=== PATIENT | male | born 1935 | race Caucasian/White ===

== ENCOUNTER 2021-10-22 10:25 | Emergency (ER) | payer MEDICARE ==
[~2021-10-22] VITALS: Ht 182 cm; Wt 73.0 kg
[2021-10-22] MEDS ORDERED: ACETAMINOPHEN 500 MG TAB (TYLENOL) PO ONE (10:45)
--- NOTE | 2021-10-22 10:49 | ED Lower Extremity ---
General Chief Complaint: Lower Extremity Stated Complaint: R 2ND TOE BLACK Source: patient Exam Limitations: no limitations History of Present Illness Date Seen by Provider: Oct 22, 2021 Time Seen by Provider: 10:40 Initial Comments Pt presented to the emergency room with a chief complaint of "right 2nd toe black." Pt was alert and oriented on arrival. Pt was accompanied by a health care provider from [place] and she stated that the patient is legally blind. Pt has wounds on both his 2nd toes, but the right 2nd toe is black. PT is ESRD on Hemodialysis. Location Injury Occurred: 2nd right toe Onset: other Severity: moderate Pain/Injury Location: right 2nd toe Method of Injury: other (ulcer/ skin rubbing against the shoe) Modifying Factors: Worse With Movement Associated Symptoms: Pain Allergies and Home Medications Allergies Coded Allergies: clonazepam (Verified Allergy, Unknown, 10/22/21) clopidogrel (Verified Allergy, Unknown, 10/22/21) heparin (Verified Allergy, Unknown, 10/22/21) Patient Home Medication List Home Medication List Reviewed: Yes Review of Systems Constitutional: No chills, No fever EENTM: see HPI, no symptoms reported Respiratory: no symptoms reported, see HPI Cardiovascular: no symptoms reported, see HPI Gastrointestinal: no symptoms reported Genitourinary: no symptoms reported, see HPI Musculoskeletal: see HPI; No muscle twitching; other (right second toe pain) Skin: change in color, other (ulcer, necrosis) Psychiatric/Neurological: No Symptoms Reported, See HPI Physical Exam Vital Signs Vital Signs - First Documented 10/22/21 10:30 Temp 36.1 Pulse 67 Resp 18 B/P (MAP) 132/71 (91) Pulse Ox 100 Capillary Refill : Height, Weight, BMI Height: '" Weight: lbs. oz. kg; BMI Method: General Appearance: WD/WN, no apparent distress; No mild distress, No moderate distress, No severe distress Neck: non-tender, full range of motion Cardiovascular: normal peripheral pulses, regular rate, rhythm, no gallop, no murmur Respiratory: lungs clear, normal breath sounds, no respiratory distress Gastrointestinal: normal bowel sounds, non tender Back: normal inspection, no CVA tenderness Hips: bilateral hip normal inspection, bilateral hip normal range of motion Legs: bilateral leg normal range of motion, bilateral leg no evidence of injury Knees: bilateral knee normal range of motion, bilateral knee no evidence of injury Ankles: bilateral ankle normal inspection, bilateral ankle normal range of motion Feet: right foot pain, right foot other (dry and wet necrosis of 2nd right toe. There is a small 4 mm circular eschar over the dorsal aspect of the great toe at the IP joint. There is no other erythema of the great toe. The erythema of the second toe does not extend proximal to the MTP joint.) Neurologic/Tendon: normal sensation, responds to pain Neurologic/Psychiatric: alert, oriented x 3 Skin: normal color, warm/dry; No cyanosis; other (necrosis) Lymphatic: no adenopathy Progress/Results/Core Measures Results/Orders Lab Results Laboratory Tests Test 10/22/21 10:50 Range/Units White Blood Count 7.3 4.3-11.0 10^3/uL Red Blood Count 3.92 L 4.30-5.52 10^6/uL Hemoglobin 13.1 L 13.3-17.7 g/dL Hematocrit 41 40-54 % Mean Corpuscular Volume 105 H 80-99 fL Mean Corpuscular Hemoglobin 33 25-34 pg Mean Corpuscular Hemoglobin Concent 32 32-36 g/dL Red Cell Distribution Width 12.9 10.0-14.5 % Platelet Count 348 130-400 10^3/uL Mean Platelet Volume 9.4 9.0-12.2 fL Immature Granulocyte % (Auto) 0 % Neutrophils (%) (Auto) 71 42-75 % Lymphocytes (%) (Auto) 17 12-44 % Monocytes (%) (Auto) 11 0-12 % Eosinophils (%) (Auto) 0 0-10 % Basophils (%) (Auto) 1 0-10 % Neutrophils # (Auto) 5.2 1.8-7.8 10^3/uL Lymphocytes # (Auto) 1.2 1.0-4.0 10^3/uL Monocytes # (Auto) 0.8 0.0-1.0 10^3/uL Eosinophils # (Auto) 0.0 0.0-0.3 10^3/uL Basophils # (Auto) 0.0 0.0-0.1 10^3/uL Immature Granulocyte # (Auto) 0.0 0.0-0.1 10^3/uL Neutrophils % (Manual) 69 % Lymphocytes % (Manual) 19 % Monocytes % (Manual) 7 % Eosinophils % (Manual) 1 % Basophils % (Manual) 0 % Band Neutrophils 4 % Macrocytosis SLIGHT Elliptocytes SLIGHT Erythrocyte Sedimentation Rate 57 H 0-30 MM/HR Prothrombin Time 13.1 12.2-14.7 SEC INR Comment 1.0 0.8-1.4 Sodium Level 142 135-145 MMOL/L Potassium Level 3.7 3.6-5.0 MMOL/L Chloride Level 99 98-107 MMOL/L Carbon Dioxide Level 25 21-32 MMOL/L Anion Gap 18 H 5-14 MMOL/L Blood Urea Nitrogen 30 H 7-18 MG/DL Creatinine 4.82 H 0.60-1.30 MG/DL Estimat Glomerular Filtration Rate 11 BUN/Creatinine Ratio 6 Glucose Level 85 70-105 MG/DL Calcium Level 9.8 8.5-10.1 MG/DL Corrected Calcium 10.2 H 8.5-10.1 MG/DL Total Bilirubin 0.2 0.1-1.0 MG/DL Aspartate Amino Transf (AST/SGOT) 34 5-34 U/L Alanine Aminotransferase (ALT/SGPT) 16 0-55 U/L Alkaline Phosphatase 144 H 40-136 U/L Total Protein 7.0 6.4-8.2 GM/DL Albumin 3.5 3.2-4.5 GM/DL My Orders Orders - ESTUARDO LESTER [employer] Cbc And Manual Diff (10/22/21 10:39) Comprehensive Metabolic Panel (10/22/21 10:39) Foot, Right, 3 View (10/22/21 10:39) Protime With Inr (10/22/21 10:39) Erythrocyte Sedimentation Rate (10/22/21 10:43) Ed Iv/Invasive Line Start (10/22/21 10:43) Acetaminophen Tablet (Tylenol Tablet) (10/22/21 10:45) Vital Signs/I&O 10/22/21 10:30 Temp 36.1 Pulse 67 Resp 18 B/P (MAP) 132/71 (91) Pulse Ox 100 Departure Communication (Admissions) Family Conversation [id number] discussed with Dr. Greene and he will see in the clinic and tentatively plan for amputation of toe later this week. We will do a dose of Rocephin here and a prescription for Augmentin. I called Dr. Greene's office, he will see the patient today at 3 PM patient should arrive at 2:30 PM. NAME: [facility] REC#: [id number] PT STATUS: REG ER : 1935 PHYSICIAN: ESTUARDO LESTRE APRN ADMIT DATE: 10/22/21/ER Draft Date of Exam:10/22/21 FOOT, RIGHT, 3 VIEW INDICATION: Ulcer of the second toe. COMPARISON: None. FINDINGS: Three radiographic views of the right foot were obtained. Patient is status post previous ORIF of the distal tibia and fibula. No unexpected radiopaque foreign bodies are seen. There is generalized diminished bone mineral density suggestive of underlying osteopenia. There is focal cortical irregularity of the [id number] fifth metatarsal. Appearance is suggestive of old partially healed fracture. No definite osteolytic process is seen. Please note, second toe is suboptimally evaluated due to hammertoe deformity and superimposition of the osseous structures on the frontal and oblique views. Joint spaces are maintained. IMPRESSION: 1. Suboptimal evaluation of the second toe. Osteomyelitis cannot be excluded. Correlation with MRI is recommended. If MRI is contraindicated, triple-phase bone scan could be performed. 2. Probable old partially healed fracture of the fifth metatarsal. 3. Diminished bone mineral density suspicious for osteopenia/osteoporosis. Correlation with DEXA scan is advised. Dictated on workstation # [id number] Dict: 10/22/21 1110 Trans: 10/22/21 1118 [id number] Interpreted by: ENID SCHROEDER MD Electronically signed by: Impression Primary Impression: Necrotic toes Disposition: 01 HOME, SELF-CARE Condition: Stable Departure-Patient Inst. Decision time for Depature: 11:46 Referrals: NGUYEN GREENE DAVID F MD (PCP/Family) Primary Care Physician Patient Instructions: Gangrene Add. Discharge Instructions: 1. Antibiotic as directed. See Dr. Greene today at 3 PM but you should arrive at 2:30 PM. All discharge instructions reviewed with patient and/or family. Voiced understanding. Scripts Amoxicillin/Potassium Clav (Augmentin 500-125 Tablet) 500 Mg-125 Mg Tablet 1 EACH PO DAILY, #7 TAB Prov: ESTUARDO LESTER APRN 10/22/21 ESTUARDO LESTER APRN Oct 22, 2021 10:49
[2021-10-22 11:01] LABS: BASOPHILS % (AUTO) 1 % (0-10); EOSINOPHILS % (AUTO) 0 % (0-10); HEMATOCRIT 41 % (40-54); HEMOGLOBIN 13.1 g/dL (13.3-17.7); LYMPHOCYTES # (AUTO) 1.2 10^3/uL (1.0-4.0); LYMPHOCYTES % (AUTO) 17 % (12-44); MEAN CORPUSCULAR HEMOGLOBIN 33 pg (25-34); MEAN CORPUSCULAR HGB CONC 32 g/dL (32-36); MEAN CORPUSCULAR VOLUME 105 fL (80-99); MEAN PLATELET VOLUME 9.4 fL (9.0-12.2); MONOCYTES # (AUTO) 0.8 10^3/uL (0.0-1.0); MONOCYTES % (AUTO) 11 % (0-12); NEUTROPHILS # (AUTO) 5.2 10^3/uL (1.8-7.8); NEUTROPHILS % (AUTO) 71 % (42-75); PLATELET COUNT 348 10^3/uL (130-400); WHITE BLOOD COUNT 7.3 10^3/uL (4.3-11.0)
[2021-10-22 11:12] LABS: ALBUMIN 3.5 GM/DL (3.2-4.5)
[2021-10-22 11:13] LABS: POTASSIUM 3.7 MMOL/L (3.6-5.0)
[2021-10-22 11:14] LABS: CALCIUM 9.8 MG/DL (8.5-10.1); PROTHROMBIN TIME PATIENT 13.1 SEC (12.2-14.7)
[2021-10-22 11:17] LABS: BILIRUBIN,TOTAL 0.2 MG/DL (0.1-1.0)
--- NOTE | 2021-10-22 11:18 | Diagnostic Imaging Report ---
INDICATION: Ulcer of the second toe. COMPARISON: None. FINDINGS: Three radiographic views of the right foot were obtained. Patient is status post previous ORIF of the distal tibia and fibula. No unexpected radiopaque foreign bodies are seen. There is generalized diminished bone mineral density suggestive of underlying osteopenia. There is focal cortical irregularity of the [id number] fifth metatarsal. Appearance is suggestive of old partially healed fracture. No definite osteolytic process is seen. Please note, second toe is suboptimally evaluated due to hammertoe deformity and superimposition of the osseous structures on the frontal and oblique views. Joint spaces are maintained. IMPRESSION: 1. Suboptimal evaluation of the second toe. Osteomyelitis cannot be excluded. Correlation with MRI is recommended. If MRI is contraindicated, triple-phase bone scan could be performed. 2. Probable old partially healed fracture of the fifth metatarsal. 3. Diminished bone mineral density suspicious for osteopenia/osteoporosis. Correlation with DEXA scan is advised. Dictated by: Dictated on workstation # [id number]
[2021-10-22 11:19] LABS: CREATININE SERUM 4.82 MG/DL (0.60-1.30)
[2021-10-22 11:30] LABS: ERYTHROCYTE SEDIMENTATION RATE 57 MM/HR (0-30)
[2021-10-22 11:37] LABS: BAND NEUTROPHILS 4 %; BASOPHILS % (MANUAL) 0 %; ELLIPT/OVALOCYTES SLIGHT; EOSINOPHILS % (MANUAL) 1 %; LYMPHOCYTES % (MANUAL) 19 %; MONOCYTES % (MANUAL) 7 %; NEUTROPHILS % (MANUAL) 69 %
[2021-10-22] MEDS ORDERED: AMOX-355 PO (11:47)
[2021-10-22 12:00] VITALS: BP 125/68
[2021-10-22] MEDS ORDERED: cefTRIAXone 1 GM PRE-MIX 50 ML IV ONE (12:30)
== END 2021-10-22 12:00 | disposition home or self-care (01) ==
LOC: ER 10:30
DX: M87.077 Idiopathic aseptic necrosis of right toe(s) (principal); N18.6 End stage renal disease
CPT/HCPCS: 36415; 73630; 80053; 85007; 85027; 85610; 85652

== ENCOUNTER 2021-10-24 05:30 | Outpatient (CLI) | payer MEDICARE ==
[~2021-10-24] VITALS: Ht 182.9 cm; Wt 72.7 kg
[~2021-10-24 05:30] MED LIST: AMOX-355 PO
[2021-10-24] MEDS ORDERED: APIX2.5T PO (14:52)
[2021-10-24] MEDS ORDERED: ATOR40TA PO (15:08)
[2021-10-24] MEDS ORDERED: LEG CRAMPS TAB (15:08)
[2021-10-24] MEDS ORDERED: CALC667C10 PO (15:08)
[2021-10-24] MEDS ORDERED: HYDR-3820 PO (15:08)
[2021-10-24] MEDS ORDERED: NITR0.4T39 SL (15:08)
[2021-10-24] MEDS ORDERED: ACET-168 PO (15:08)
[2021-10-24] MEDS ORDERED: VITA1CAP16 PO (15:08)
[2021-10-24] MEDS ORDERED: MIDO5TAB3 PO (15:08)
[2021-10-24] MEDS ORDERED: FINA5TAB6 PO (15:08)
[2021-10-24] MEDS ORDERED: GABA-486 PO (15:08)
[2021-10-24] MEDS ORDERED: PANT40SU PO (15:08)
[2021-10-24] MEDS ORDERED: LEVO25TA2 PO (15:08)
[2021-10-24] MEDS ORDERED: MAGN400T7 PO (15:08)
[2021-10-24] MEDS ORDERED: CARB100T48 PO (15:08)
[2021-10-24] MEDS ORDERED: LINA145C PO (15:08)
[2021-10-24] MEDS ORDERED: ONDA4TAB11 PO (15:08)
[2021-10-24] MEDS ORDERED: DIPH25TA31 PO ×2 (15:08)
[2021-10-24] MEDS ORDERED: CAMPHOR-MENTHOL TOP (15:08)
[2021-10-24] MEDS ORDERED: ROPI0.5T4 PO (15:08)
[2021-10-24] MEDS ORDERED: CALC-870 PO (15:08)
== END 2021-10-24 15:09 | disposition home or self-care (01) ==
LOC: PREOP 05:30
PROVIDERS: ATTEND Surgery
DX: Z01.818 Encounter for other preprocedural examination (principal)

== ENCOUNTER 2021-10-30 16:02 | Emergency (ER) | payer MEDICARE ==
[~2021-10-30] VITALS: Ht 182.8 cm; Wt 74.8 kg
[2021-10-30 16:02] VITALS: BP 93/78
[~2021-10-30 16:02] MED LIST changes: +ACET-168 PO; +APIX2.5T PO; +ATOR40TA PO; +CALC-870 PO; +CALC667C10 PO; +CAMPHOR-MENTHOL TOP; +CARB100T48 PO; +DIPH25TA31 PO; +FINA5TAB6 PO; +GABA-486 PO; +HYDR-3820 PO; +LEG CRAMPS TAB; +LEVO25TA2 PO; +LINA145C PO; +MAGN400T7 PO; +MIDO5TAB3 PO; +NITR0.4T39 SL; +ONDA4TAB11 PO; +PANT40SU PO; +ROPI0.5T4 PO; +VITA1CAP16 PO
[2021-10-30] MEDS ORDERED: NS IV 500 ML 500 ML IV ONE (16:15)
--- NOTE | 2021-10-30 16:41 | Diagnostic Imaging Report ---
INDICATION: Sepsis. COMPARISON: No priors. FINDINGS: No focal consolidation, effusion, pneumothorax, or failure pattern. A left-sided vascular stent is partially visualized. No free air beneath the diaphragms. IMPRESSION: No acute appearing abnormality. Dictated by: Dictated on workstation # [id number]
--- NOTE | 2021-10-30 16:47 | Diagnostic Imaging Report ---
INDICATION: Sepsis. COMPARISON: Comparison is limited to three-view radiograph of the right foot dated 10/22/2021. FINDINGS: RIGHT FOOT: Two-view right foot performed. The toes are held in flexion limiting their evaluation. No appreciable soft tissue gas or pathological radiopaque foreign body. There is bony demineralization with the most pronounced juxta-articular distribution. No appreciable osseous destruction. No acute fracture. There are substantial atherosclerotic vascular calcifications and postsurgical changes to the medial and lateral malleoli, chronic. When correlated with previous exam, no appreciable change has occurred. LEFT FOOT: Similar pattern of bony demineralization and atherosclerotic vascular calcifications with toes held in flexion is found on the left. No gas or suspicious opaque foreign body. No fracture deformity or osseous destruction. 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 No acute bony destructive process found, but the toes being held in flexion does limit their radiographic visualization. No suspicious foreign body or soft tissue gas is identified. Dictated by: Dictated on workstation # [id number]
--- NOTE | 2021-10-30 18:28 | ED General ---
General Chief Complaint: Altered Mental Status Stated Complaint: CONFUSION Nursing Triage Note: PT BROUGHT IN BY [facility] FROM [facility] [place] FOR INCREASING CONFUSION. Source of Information: Patient, EMS, Family, Longterm Records Exam Limitations: Other History of Present Illness Date Seen by Provider: Oct 30, 2021 Time Seen by Provider: 16:05 Initial Comments This 86-year-old gentleman is brought to the emergency room via EMS from [facility] with complaints of altered mental status. Reportedly he has experienced increased confusion over the past 2 weeks. He has history of rather severe dementia according to his daughter and has had fairly rapid progression of disease in recent years. Lenora is agitated and resisting care. He makes requests such as "just let me ." He is a poor historian due to his dementia. He appears to have rather significant vascular disease with cool extremities and no presenting venous access. He does have a dialysis fistula in the left arm. He receives dialysis Thursday, Thursday, and Thursday. He is afebrile. He has atrial fibrillation with RVR on the monitor. He currently has gangrenous toes on both feet and is scheduled for amputation tomorrow with Dr. Vazquez. EMS reported he did not take all of his medications today. Allergies and Home Medications Allergies Coded Allergies: clonazepam (Verified Allergy, Unknown, 10/22/21) clopidogrel (Verified Allergy, Unknown, 10/22/21) heparin (Verified Allergy, Unknown, 10/22/21) Uncoded Allergies: CHLORINE (Allergy, Unknown, 10/24/21) Patient Home Medication List Home Medication List Reviewed: Yes Acetaminophen (Acetaminophen Extra Strength) 500 Mg Tablet, 500 MG PO Q8H PRN for PRN, (Reported) Entered as Reported by: NILS MONTE on 10/24/21 1508 Amoxicillin/Potassium Clav (Augmentin 500-125 Tablet) 500 Mg-125 Mg Tablet, 1 EACH PO DAILY Prescribed by: ESTUARDO LESTER on 10/22/21 1147 Apixaban (Eliquis) 2.5 Mg Tablet, 2.5 MG PO BID, (Reported) Entered as Reported by: NILS MONTE on 10/24/21 1452 Atorvastatin Calcium (Lipitor) 40 Mg Tablet, 40 MG PO HS, (Reported) Entered as Reported by: NILS MONTE on 10/24/21 1508 Calcium Acetate (Calcium Acetate) 667 Mg Capsule, 667 MG PO TID, (Reported) Entered as Reported by: NILS MONTE on 10/24/21 1508 Calcium Carbonate (Tums X-Str) 300 Mg Calcium (750 Mg) Tab.chew, 300 MG PO UD, (Reported) Entered as Reported by: NILS MONTE on 10/24/21 1508 Carbamazepine (Carbamazepine ER) 100 Mg Tab.er.12h, 300 MG PO BID, (Reported) Entered as Reported by: NILS MONTE on 10/24/21 1508 Diphenhydramine HCl (Diphenhydramine HCl) 25 Mg Tablet, 25 MG PO Q6H PRN, (Reported) Entered as Reported by: NILS MONTE on 10/24/21 1508 Diphenhydramine HCl (Diphenhydramine HCl) 25 Mg Tablet, 50 MG PO Q MWF FOR DIALYSIS, (Reported) Entered as Reported by: NILS MONTE on 10/24/21 1508 Finasteride (Finasteride) 5 Mg Tablet, 5 MG PO DAILY, (Reported) Entered as Reported by: NILS MONTE on 10/24/21 1508 Gabapentin (Gabapentin) 100 Mg Capsule, 100 MG PO TID, (Reported) Entered as Reported by: NILS MONTE on 10/24/21 1508 Hydrocodone/Acetaminophen (Hydrocodone-Acetamin 10-325 mg) 10 Mg-325 Mg Tablet, 1 EACH PO Q6H PRN for PRN, (Reported) Entered as Reported by: NILS MONTE on 10/24/21 1508 Levothyroxine Sodium (Synthroid) 25 Mcg Tablet, 25 MCG PO DAILY, (Reported) Entered as Reported by: NILS MONTE on 10/24/21 1508 Linaclotide (Linzess) 145 Mcg Capsule, 145 MCG PO DAILY, (Reported) Entered as Reported by: NILS MONTE on 10/24/21 1508 Magnesium Oxide (Magnesium Oxide) 400 Mg Tablet, 400 MG PO DAILY, (Reported) Entered as Reported by: NILS MONTE on 10/24/21 1508 Midodrine HCl (Midodrine HCl) 5 Mg Tablet, 5 MG PO TID, (Reported) Entered as Reported by: NILS MONTE on 10/24/21 1508 Nitroglycerin (Nitroglycerin) 0.4 Mg Tab.subl, 0.4 MG SL UD PRN for CHEST PAIN, (Reported) Entered as Reported by: NILS MONTE on 10/24/211507 Ondansetron (Ondansetron Odt) 4 Mg Tab.rapdis, 4 MG PO PRN, (Reported) Entered as Reported by: NILS MONTE on 10/24/211507 Pantoprazole Sodium (Protonix) 40 Mg Granpkt.dr, 40 MG PO DAILY, (Reported) Entered as Reported by: NILS MONTE on 10/24/211507 Ropinirole HCl (Ropinirole HCl) 0.5 Mg Tablet, 0.5 MG PO UD, (Reported) Entered as Reported by: NILS MONTE on 10/24/211507 Vitamin B Complex & Vit C No.3 (B Complex with Vitamin C) 15-10-300 Capsule, 1 EACH PO HS, (Reported) Entered as Reported by: NILS MONTE on 10/24/21 150 [Camphor-Menthol ] Unknown Strength , Unknown Dose TOP Q6H PRN, (Reported) Entered as Reported by: NILS MONTE on 10/24/21 150 [Leg Cramps Tab ] Unknown Strength , Unknown Dose UD, (Reported) Entered as Reported by: NILS MONTE on 10/24/211507 Review of Systems Review of Systems Constitutional: no symptoms reported, other EENTM: no symptoms reported Respiratory: no symptoms reported Cardiovascular: see HPI Gastrointestinal: no symptoms reported Genitourinary: no symptoms reported Musculoskeletal: see HPI Skin: see HPI Psychiatric/Neurological: See HPI Hematologic/Lymphatic: No Symptoms Reported Immunological/Allergic: no symptoms reported Past Rcaxums-Npyuph-Lmyvjw Hx Patient Social History Tobacco Use?: No Smoking Status: Former Smoker Use of E-Cig and/or Vaping dev: No Substance use?: No Alcohol Use?: No Immunizations Up To Date First/Initial COVID19 Vaccinat: 2020 Second COVID19 Vaccination Andrew: 2020 Third COVID19 Vaccination Date: 2020 Seasonal Allergies Seasonal Allergies: No Past Medical History Surgeries: Yes (SEE COMMENT SECTION) Respiratory: No Cardiac: Yes Atrial Fibrillation, Coronary Artery Disease, High Cholesterol, Hypertension Neurological: Yes (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, 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) Genitourinary: Yes (HEMO DIALYSIS 3X WEEK MO-THU-THU) Benign Prostatic Hyperpl, Renal Failure, Dialysis Gastrointestinal: Yes (MALIGNANT TUMOR OF COLON) Musculoskeletal: Yes Arthritis, Fractures Endocrine: No HEENT: Yes (BLIND IN RT EYE, PARTIAL BLINDNESS LT EYE) Cataract, Eye Injury Loss of Vision: Bilateral Hearing Impairment: Hard of Hearing Cancer: Yes Colon Did You Recieve Any Treatments: Yes What Type of Treatment Did You: Surgical Intervention Psychosocial: Yes Anxiety Integumentary: No Blood Disorders: Yes (ANEMIA) Adverse Reaction/Blood Tranf: No Physical Exam Vital Signs Vital Signs - First Documented 10/30/21 16:02 Temp 36.1 Pulse 131 Resp 22 B/P (MAP) 93/78 (83) Capillary Refill : Greater Than 3 Seconds Height, Weight, BMI Height: '" Weight: lbs. oz. kg; 22.00 BMI Method: General Appearance: WD/WN, Cachetic, Moderate Distress (Agitated, pleads against interventions) HEENT: Normal ENT Inspection, Other (Blind) Neck: Normal Inspection Respiratory: Lungs Clear, Normal Breath Sounds, No Accessory Muscle Use Cardiovascular: No Edema, Irregularly Irregular, Tachycardia Gastrointestinal: Non Tender, Soft Extremity: No Pedal Edema, Other (Gangrenous toes bilaterally. Very poor perfusion with cool extremities. No palpable pedal pulses bilaterally.) Neurologic/Psychiatric: Alert, Motor Weakness (No obvious motor deficits. Moves all 4 extremities equally), Other (Poor historian. Oriented to person and place) Skin: Cool, Pallor Focused Exam Lactate Level 10/30/21 18:28: Lactic Acid Level 3.78*H Lactic Acid Level Laboratory Tests Test 10/30/21 18:28 Lactic Acid Level 3.78 MMOL/L (0.50-2.00) *H Progress/Results/Core Measures Suspected Sepsis SIRS Temperature: Pulse: 131 Respiratory Rate: 22 Laboratory Tests 10/30/21 18:22: White Blood Count 15.8H Blood Pressure 93 /78 Mean: 83 10/30/21 18:28: Lactic Acid Level 3.78*H Laboratory Tests 10/30/21 18:22: Creatinine 2.98H, INR Comment 1.0, Platelet Count 453H, Total Bilirubin 0.4 Results/Orders Lab Results Laboratory Tests Test 10/30/21 18:22 10/30/21 18:28 Range/Units White Blood Count 15.8 H 4.3-11.0 10^3/uL Red Blood Count 3.80 L 4.30-5.52 10^6/uL Hemoglobin 12.5 L 13.3-17.7 g/dL Hematocrit 38 L 40-54 % Mean Corpuscular Volume 101 H 80-99 fL Mean Corpuscular Hemoglobin 33 25-34 pg Mean Corpuscular Hemoglobin Concent 33 32-36 g/dL Red Cell Distribution Width 12.8 10.0-14.5 % Platelet Count 453 H 130-400 10^3/uL Mean Platelet Volume 9.6 9.0-12.2 fL Immature Granulocyte % (Auto) 1 % Neutrophils (%) (Auto) 87 H 42-75 % Lymphocytes (%) (Auto) 7 L 12-44 % Monocytes (%) (Auto) 5 0-12 % Eosinophils (%) (Auto) 0 0-10 % Basophils (%) (Auto) 0 0-10 % Neutrophils # (Auto) 13.7 H 1.8-7.8 10^3/uL Lymphocytes # (Auto) 1.1 1.0-4.0 10^3/uL Monocytes # (Auto) 0.8 0.0-1.0 10^3/uL Eosinophils # (Auto) 0.0 0.0-0.3 10^3/uL Basophils # (Auto) 0.1 0.0-0.1 10^3/uL Immature Granulocyte # (Auto) 0.2 H 0.0-0.1 10^3/uL Neutrophils % (Manual) 78 % Lymphocytes % (Manual) 13 % Monocytes % (Manual) 8 % Eosinophils % (Manual) 1 % Blood Morphology Comment NORMAL Prothrombin Time 13.4 12.2-14.7 SEC INR Comment 1.0 0.8-1.4 Activated Partial Thromboplast Time 43 H 24-35 SEC Sodium Level 137 135-145 MMOL/L Potassium Level 3.6 3.6-5.0 MMOL/L Chloride Level 97 L 98-107 MMOL/L Carbon Dioxide Level 18 L 21-32 MMOL/L Anion Gap 22 H 5-14 MMOL/L Blood Urea Nitrogen 16 7-18 MG/DL Creatinine 2.98 H 0.60-1.30 MG/DL Estimat Glomerular Filtration Rate 20 BUN/Creatinine Ratio 5 Glucose Level 113 H 70-105 MG/DL Calcium Level 9.0 8.5-10.1 MG/DL Corrected Calcium 9.6 8.5-10.1 MG/DL Total Bilirubin 0.4 0.1-1.0 MG/DL Aspartate Amino Transf (AST/SGOT) 17 5-34 U/L Alanine Aminotransferase (ALT/SGPT) 16 0-55 U/L Alkaline Phosphatase 126 40-136 U/L C-Reactive Protein High Sensitivity 13.35 H 0.00-0.50 MG/DL Total Protein 6.6 6.4-8.2 GM/DL Albumin 3.2 3.2-4.5 GM/DL Procalcitonin 0.79 H <0.10 NG/ML Lactic Acid Level 3.78 *H 0.50-2.00 MMOL/L My Orders Orders - LEEROY PEREZ MD Cbc With Automated Diff (10/30/21 16:09) Comprehensive Metabolic Panel (10/30/21 16:09) Blood Culture (10/30/21 16:09) Sputum Culture (10/30/21 16:09) Urinalysis (10/30/21 16:09) Urine Culture (10/30/21 16:09) Protime With Inr (10/30/21 16:09) Partial Thromboplastin Time (10/30/21 16:09) Chest 1 View, Ap/Pa Only (10/30/21 16:09) Ed Iv/Invasive Line Start (10/30/21 16:09) Ed Iv/Invasive Line Start (10/30/21 16:09) Vital Signs Adult Sepsis Patie Q15M (10/30/21 16:09) O2 (10/30/21 16:09) Remove Rings In Anticipation O (10/30/21 16:09) Lactic Acid Analyzer (10/30/21 16:09) Foot, Bilateral, 2 Views (10/30/21 16:09) Ekg Tracing (10/30/21 16:09) Monitor-Rhythm Ecg Trace Only (10/30/21 16:09) Ns Iv 500 Ml (Sodium Chloride 0.9%) (10/30/21 16:15) Manual Differential (10/30/21 18:22) Hs C Reactive Protein (10/30/21 19:11) Procalcitonin (Pct) (10/30/21 19:11) Ceftriaxone (Rocephin) (10/30/21 19:15) Lidocaine 1% Inj 20 Ml (Xylocaine 1% Inj (10/30/21 19:15) Vital Signs/I&O 10/30/21 16:02 Temp 36.1 Pulse 131 Resp 22 B/P (MAP) 93/78 (83) Capillary Refill : Greater Than 3 Seconds Blood Pressure Mean: 83 Progress Note #1: Time: 18:33 Progress Note Patient is not cooperative with interventions such as acquiring vital signs or IV attempts. There were attempts to start an IV but his vascular access is so poor that no attempts were successful. We are attempting a lab draw. I discussed the situation with his daughter Kenyatta who is the DPOA. I expressed my concern about Lenora's resistance and expressed desire to avoid aggressive interventions. She counters and states she would like continued aggressive care including surgery and dialysis despite acknowledging his progressing poor quality of life and inability to execute his desires such as returning to [place]. Kenyatta stated she intends to come up to the emergency room and assist with his care. Progress Note #2: Time: 19:08 Progress Note We have been unable to procure venous access. I did attempt with ultrasound and did obtain vascular access near the right AC. However, this vessel, although superficial, proved to be arterial. It was removed and a second attempt was performed on a vein in the same region. This attempt was not successful. Further attempts were abandoned and lieu of waiting for conversation with his daughter. Progress Note #3: Time: 19:30 Progress Note I have discussed this case with Dr. Vazquez and Dr. Anton. We have multiple concerns about admitting this patient and performing surgery. First, patient is very clear that he does not want surgery or aggressive care. Despite his dementia, his wishes are expressed so adamantly that it would not seem ethical at this point to perform the surgery in the short-term. Second, he is a dialysis patient and this facility is not capable of managing the potential complications that could arise from surgery in a dialysis patient. The cons ensus amongst myself, Dr. Anton, and Dr. Vazquez is that he should not be admitted and pursue surgery at this facility in the morning as previously planned. Rather, if aggressive care is desired, he should have surgery in a dialysis capable facility. Progress Note #4: Time: 20:02 Progress Note Lenora's daughter, Kenyatta, has arrived to the hospital. She is very adamant that Lenora receive aggressive care. She is demanding that he be transferred to [facility] and surgery pursued. As DPOA, she is demanding this even after he expressed multiple times to her that he is ready to . Lenora did at one point, after her assertions, say he did want to go to [facility] and have surgery. I have placed a phone call to [facility] transfer center and am awaiting a call back. Progress Note #5: Time: 20:[address] Priest has graciously excepted transfer as long as patient has vascular access prior to transferring. I have discussed this with patient and his daughter. Care is being transitioned to Dr. Tubbs. We will work with nighttime nursing staff to try to procure IV access. If IV access cannot be secured, we may need to sedate the patient and consult surgery for a central line. Diagnostic Imaging Diagonstic Imaging: Xray Plain Films/CT/US/NM/MRI: other (Bilateral feet) Comments NAME: [facility] REC#: [id number] PT STATUS: REG ER : 1935 PHYSICIAN: LEEROY PEREZ MD ADMIT DATE: 10/30/21/ER Signed Date of Exam:10/30/21 FOOT, BILATERAL, 2 VIEWS INDICATION: Sepsis. COMPARISON: Comparison is limited to three-view radiograph of the right foot dated 10/22/2021. FINDINGS: RIGHT FOOT: Two-view right foot performed. The toes are held in flexion limiting their evaluation. No appreciable soft tissue gas or pathological radiopaque foreign body. There is bony demineralization with the most pronounced juxta-articular distribution. No appreciable osseous destruction. No acute fracture. There are substantial atherosclerotic vascular calcifications and postsurgical changes to the medial and lateral malleoli, chronic. When correlated with previous exam, no appreciable change has occurred. LEFT FOOT: Similar pattern of bony demineralization and atherosclerotic vascular calcifications with toes held in flexion is found on the left. No gas or suspicious opaque foreign body. No fracture deformity or osseous destruction. 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 No acute bony destructive process found, but the toes being held in flexion does limit their radiographic visualization. No suspicious foreign body or soft tissue gas is identified. Dictated by: Dictated on workstation # [id number] Dict: 10/30/21 1639 Trans: 10/30/211658 [id number] Interpreted by: KAREN NEWELL Electronically signed by: KAREN NEWELL 10/30/211658 Reviewed: Reviewed by Me Diagonstic Imaging: Xray Plain Films/CT/US/NM/MRI: chest Comments NAME: [facility] REC#: [id number] PT STATUS: REG ER : 1935 PHYSICIAN: LEEROY PEREZ MD ADMIT DATE: 10/30/21/ER Signed Date of Exam:10/30/21 CHEST 1 VIEW, AP/PA ONLY INDICATION: Sepsis. COMPARISON: No priors. FINDINGS: No focal consolidation, effusion, pneumothorax, or failure pattern. A left-sided vascular stent is partially visualized. No free air beneath the diaphragms. IMPRESSION: No acute appearing abnormality. Dictated by: Dictated on workstation # [id number] Dict: 10/30/218 Trans: 10/30/211657 [id number] Interpreted by: KAREN NEWELL Electronically signed by: KAREN NEWELL 10/30/211657 Reviewed: Reviewed by Me Departure Impression Primary Impression: Gangrene of toe of right foot Additional Impressions: Dementia Qualified Codes: F03.91 - Unspecified dementia with behavioral disturbance Agitation Sepsis Qualified Codes: A41.9 - Sepsis, unspecified organism; R65.20 - Severe sepsis without septic shock Atrial fibrillation with RVR Disposition: T-[facility] Condition: Stable Transfer Transfer Reason: Exceeds level of care Time Spoke to Accepting Phy: 20:30 Transfer Progress Notes Case discussed with Dr. Priest who accepts transfer as long as vascular access can be obtained. Departure-Patient Inst. Referrals: REI HIGH MD (PCP/Family) Primary Care Physician LEEROY PEREZ MD Oct 30, 2021 18:28
[2021-10-30 18:38] LABS: BASOPHILS # (AUTO) 0.1 10^3/uL (0.0-0.1); BASOPHILS % (AUTO) 0 % (0-10); EOSINOPHILS % (AUTO) 0 % (0-10); HEMATOCRIT 38 % (40-54); HEMOGLOBIN 12.5 g/dL (13.3-17.7); LYMPHOCYTES # (AUTO) 1.1 10^3/uL (1.0-4.0); LYMPHOCYTES % (AUTO) 7 % (12-44); MEAN CORPUSCULAR HEMOGLOBIN 33 pg (25-34); MEAN CORPUSCULAR HGB CONC 33 g/dL (32-36); MEAN CORPUSCULAR VOLUME 101 fL (80-99); MEAN PLATELET VOLUME 9.6 fL (9.0-12.2); MONOCYTES # (AUTO) 0.8 10^3/uL (0.0-1.0); MONOCYTES % (AUTO) 5 % (0-12); NEUTROPHILS # (AUTO) 13.7 10^3/uL (1.8-7.8); NEUTROPHILS % (AUTO) 87 % (42-75); PLATELET COUNT 453 10^3/uL (130-400); WHITE BLOOD COUNT 15.8 10^3/uL (4.3-11.0)
[2021-10-30 19:01] LABS: PROTHROMBIN TIME PATIENT 13.4 SEC (12.2-14.7)
[2021-10-30 19:04] LABS: EOSINOPHILS % (MANUAL) 1 %; LYMPHOCYTES % (MANUAL) 13 %; MONOCYTES % (MANUAL) 8 %; NEUTROPHILS % (MANUAL) 78 %; RBC MORPH NORMAL
[2021-10-30] MEDS ORDERED: LIDOCAINE 1% INJ 20 ML VIAL INJ ONE (19:15)
[2021-10-30] MEDS ORDERED: cefTRIAXone 1,000 MG VIAL IM ONE (19:15)
[2021-10-30 19:29] LABS: ALBUMIN 3.2 GM/DL (3.2-4.5); POTASSIUM 3.6 MMOL/L (3.6-5.0)
[2021-10-30 19:32] LABS: TOTAL PROTEIN 6.6 GM/DL (6.4-8.2)
[2021-10-30 19:33] LABS: BILIRUBIN,TOTAL 0.4 MG/DL (0.1-1.0)
[2021-10-30 19:35] LABS: CREATININE SERUM 2.98 MG/DL (0.60-1.30)
[2021-10-30] MEDS ORDERED: NS IV 1000 ML 1,000 ML IV SCH (21:00)
[2021-10-30] MEDS ORDERED: PIPERACILLIN SODIUM/TAZOBACTAM 4.5 GM in NS (IVPB) 100 ML IV ONE (21:30)
== END 2021-10-30 22:23 | disposition short-term general hospital (02) ==
LOC: EDUNIT# 16:02 → ER 16:05
DX: I96 Gangrene, not elsewhere classified (principal); F03.90 Unspecified dementia, unspecified severity, without behavioral disturbance, psychotic disturbance, mood disturbance, and anxiety; R45.1 Restlessness and agitation; A41.9 Sepsis, unspecified organism; I48.20 Chronic atrial fibrillation, unspecified; Z87.891 Personal history of nicotine dependence
CPT/HCPCS: 36415; 71045; 80053; 83605; 84145; 85007; 85027; 85610; 85730; 86141; 87040; 93005; 99291

== ENCOUNTER → 2021-11-21 | Emergency (ER) | payer MEDICARE ==
[~2021-11-21] VITALS: Ht 165 cm; Wt 81.0 kg
[~2021-11-21] MED LIST changes: +CALC GLUC 1 GM/100 ML IVPB 100 ML IV ONE; +CALCIUM GLUC. 10% 4.65 MEQ/10 ML VIAL IV ONE; +DEXTROSE 50% 50 ML (IMS) SYR IV ONE; +inSUlin (REGULAR) HUMAN 1 UNIT/0.01 ML (CHARGE PER UNIT) IV ONE
[2021-11-21 15:12] VITALS: BP 141/78
[2021-11-21 15:37] LABS: BASOPHILS % (AUTO) 0 % (0-10); EOSINOPHILS % (AUTO) 0 % (0-10); HEMATOCRIT 44 % (40-54); HEMOGLOBIN 13.9 g/dL (13.3-17.7); LYMPHOCYTES # (AUTO) 1.2 10^3/uL (1.0-4.0); LYMPHOCYTES % (AUTO) 9 % (12-44); MEAN CORPUSCULAR HEMOGLOBIN 33 pg (25-34); MEAN CORPUSCULAR HGB CONC 32 g/dL (32-36); MEAN CORPUSCULAR VOLUME 102 fL (80-99); MEAN PLATELET VOLUME 10.6 fL (9.0-12.2); MONOCYTES # (AUTO) 0.8 10^3/uL (0.0-1.0); MONOCYTES % (AUTO) 6 % (0-12); NEUTROPHILS # (AUTO) 10.5 10^3/uL (1.8-7.8); NEUTROPHILS % (AUTO) 84 % (42-75); PLATELET COUNT 331 10^3/uL (130-400); WHITE BLOOD COUNT 12.6 10^3/uL (4.3-11.0)
[2021-11-21 15:48] LABS: POTASSIUM 6.2 MMOL/L (3.6-5.0)
[2021-11-21 15:50] LABS: CALCIUM 9.7 MG/DL (8.5-10.1); PROTHROMBIN TIME PATIENT 13.8 SEC (12.2-14.7)
[2021-11-21 15:51] LABS: TOTAL PROTEIN 7.5 GM/DL (6.4-8.2)
[2021-11-21 15:53] LABS: BILIRUBIN,TOTAL 0.4 MG/DL (0.1-1.0)
[2021-11-21 15:55] LABS: CREATININE SERUM 3.66 MG/DL (0.60-1.30)
--- NOTE | 2021-11-21 21:45 | Diagnostic Imaging Report ---
EXAMINATION: Chest 1 view. HISTORY: Hypoxia. Chest pain. COMPARISON: 10/30/2021. FINDINGS: The lung volumes are normal. No focal consolidation is seen. No large pleural effusion or pneumothorax is seen. There is cardiomegaly with central pulmonary vascular congestion. No acute osseous abnormality is seen. IMPRESSION: Cardiomegaly with central pulmonary vascular congestion. Dictated by: Dictated on workstation # [id number]
--- NOTE | 2021-11-22 05:10 | ED General ---
General Chief Complaint: Abdominal/GI Problems Stated Complaint: BLOODY STOOLS Nursing Triage Note: ARRIVED VIA EMS FROM [facility], [place]. SENT HERE FOR X2 BLOODY STOOLS TODAY. PT STATES HE WISHES HE WAS [place]. PT STATES HE RECEIVES DIALYSIS . 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 PT WEARS O2 AT 3L/NC CONTINUOUSLY PT DENIES PAIN ANY WHERE PT DENIES NAUSEA DENIES CHEST PAIN DENIES SHORTNESS OF BREATH PT IS A FULL CODE, PER CARE HOME RECORDS PER MOST RECENT CHART OF 10/30/21, PT HAD REPORTED TO "JUST LET ME ", BUT FAMILY WISHED HIM TO BE A FULL CODE ON ARRIVAL HERE, PT HAS STATED THAT HE WISHES HE WERE IN [facility]. PT HAS ONLY HAD 2 PRIOR VISITS HERE, FIRST VISIT WAS 10/22/21 FOR NECROTIC TOES, AND THEN ON 10/30/21 AGAIN FOR NECROTIC TOES--WAS TRANSFERRED TO [facility] AT THAT TIME AND TOES ON BOTH FEET WERE AMPUTATED. PCP: DR. HIGH, BRANCH SPECIALIST DAVID [facility], [facility] Allergies and Home Medications Allergies Coded Allergies: clonazepam (Verified Allergy, Unknown, 10/22/21) clopidogrel (Verified Allergy, Unknown, 10/22/21) heparin (Verified Allergy, Unknown, 10/22/21) Uncoded Allergies: CHLORINE (Allergy, Unknown, 10/24/21) Patient Home Medication List Home Medication List Reviewed: Yes Acetaminophen (Acetaminophen Extra Strength) 500 Mg Tablet, 500 MG PO Q8H PRN for PRN, (Reported) Entered as Reported by: NILS MONTE on 10/24/21 1508 Amoxicillin/Potassium Clav (Augmentin 500-125 Tablet) 500 Mg-125 Mg Tablet, 1 EACH PO DAILY Prescribed by: ESTUARDO LESTER on 10/22/21 1147 Apixaban (Eliquis) 2.5 Mg Tablet, 2.5 MG PO BID, (Reported) Entered as Reported by: NILS MONTE on 10/24/21 1452 Atorvastatin Calcium (Lipitor) 40 Mg Tablet, 40 MG PO HS, (Reported) Entered as Reported by: NILS MONTE on 10/24/21 1508 Calcium Acetate (Calcium Acetate) 667 Mg Capsule, 667 MG PO TID, (Reported) Entered as Reported by: NILS MONTE on 10/24/21 1508 Calcium Carbonate (Tums X-Str) 300 Mg Calcium (750 Mg) Tab.chew, 300 MG PO UD, (Reported) Entered as Reported by: NILS MONTE on 10/24/21 1508 Carbamazepine (Carbamazepine ER) 100 Mg Tab.er.12h, 300 MG PO BID, (Reported) Entered as Reported by: NILS MONTE on 10/24/21 1508 Diphenhydramine HCl (Diphenhydramine HCl) 25 Mg Tablet, 25 MG PO Q6H PRN, (Reported) Entered as Reported by: NILS MONTE on 10/24/21 1508 Diphenhydramine HCl (Diphenhydramine HCl) 25 Mg Tablet, 50 MG PO Q MWF FOR DIALYSIS, (Reported) Entered as Reported by: NILS MONTE on 10/24/21 1508 Finasteride (Finasteride) 5 Mg Tablet, 5 MG PO DAILY, (Reported) Entered as Reported by: NILS MONTE on 10/24/21 1508 Gabapentin (Gabapentin) 100 Mg Capsule, 100 MG PO TID, (Reported) Entered as Reported by: NILS MONTE on 10/24/21 1508 Hydrocodone/Acetaminophen (Hydrocodone-Acetamin 10-325 mg) 10 Mg-325 Mg Tablet, 1 EACH PO Q6H PRN for PRN, (Reported) Entered as Reported by: NILS MONTE on 10/24/21 1508 Levothyroxine Sodium (Synthroid) 25 Mcg Tablet, 25 MCG PO DAILY, (Reported) Entered as Reported by: NILS MONTE on 10/24/21 1508 Linaclotide (Linzess) 145 Mcg Capsule, 145 MCG PO DAILY, (Reported) Entered as Reported by: NILS MONTE on 10/24/21 150 Magnesium Oxide (Magnesium Oxide) 400 Mg Tablet, 400 MG PO DAILY, (Reported) Entered as Reported by: NILS MONTE on 10/24/21 150 Midodrine HCl (Midodrine HCl) 5 Mg Tablet, 5 MG PO TID, (Reported) Entered as Reported by: NILS MONTE on 10/24/21 150 Nitroglycerin (Nitroglycerin) 0.4 Mg Tab.subl, 0.4 MG SL UD PRN for CHEST PAIN, (Reported) Entered as Reported by: NILS MONTE on 10/24/21 150 Ondansetron (Ondansetron Odt) 4 Mg Tab.rapdis, 4 MG PO PRN, (Reported) Entered as Reported by: NILS MONTE on 10/24/21 150 Pantoprazole Sodium (Protonix) 40 Mg Granpkt.dr, 40 MG PO DAILY, (Reported) Entered as Reported by: NILS MONTE on 10/24/21 150 Ropinirole HCl (Ropinirole HCl) 0.5 Mg Tablet, 0.5 MG PO UD, (Reported) Entered as Reported by: NILS MONTE on 10/24/21 150 Vitamin B Complex & Vit C No.3 (B Complex with Vitamin C) 15-10-300 Capsule, 1 EACH PO HS, (Reported) Entered as Reported by: NILS MONTE on 10/24/21 150 [Camphor-Menthol ] Unknown Strength , Unknown Dose TOP Q6H PRN, (Reported) Entered as Reported by: NILS MONTE on 10/24/21 150 [Leg Cramps Tab ] Unknown Strength , Unknown Dose UD, (Reported) Entered as Reported by: NILS MONTE on 10/24/21 150 Review of Systems Review of Systems Constitutional: see HPI Respiratory: No short of breath Cardiovascular: No chest pain Gastrointestinal: see HPI Past Kjiwljf-Vymnki-Bunjhi Hx Patient Social History Tobacco Use?: Yes Tobacco type used: Cigarettes Smoking Status: Former Smoker Substance use?: No Alcohol Use?: Yes Immunizations Up To Date First/Initial COVID19 Vaccinat: 2020 Second COVID19 Vaccination Andrew: 2020 Third COVID19 Vaccination Date: 2020 Seasonal Allergies Seasonal Allergies: No Past Medical History Surgeries: Yes (SEE COMMENT SECTION) Abdominal, Amputation, Bowel Surgery, Dialysis, Orthopedic, Vascular Surgery Respiratory: No Cardiac: Yes (PERIPHERAL ARTERY DISEASE; ARTERIAL OCCLUSION/EMBOLISM OF LEGS) Atrial Fibrillation, Coronary Artery Disease, Deep Vein Thrombosis, High Cholesterol, Hypertension, Peripheral Vascular, Syncope Neurological: Yes (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 ) Arthritis, Fractures Endocrine: No HEENT: Yes (BLIND IN RT EYE, PARTIAL BLINDNESS LT EYE) Cataract, Eye Injury, Glaucoma Loss of Vision: Bilateral Hearing Impairment: Hard of Hearing Cancer: Yes Colon Did You Recieve Any Treatments: Yes What Type of Treatment Did You: Surgical Intervention Psychosocial: Yes (DEMENTIA WITH BEHAVIOR DISTURBANCE) Anxiety Integumentary: No Blood Disorders: Yes (ANEMIA) Adverse Reaction/Blood Tranf: No Physical Exam Vital Signs Vital Signs - First Documented 11/21/21 11/21/21 15:12 15:23 Temp 36.3 Pulse 87 Resp 16 B/P (MAP) 141/78 (99) O2 Delivery Nasal Cannula O2 Flow Rate 3.00 Capillary Refill : Height, Weight, BMI Height: '" Weight: lbs. oz. kg; 29.00 BMI Method: General Appearance: No Apparent Distress, WD/WN, Other (SLEEPING, EASILY AWAKENS. LOTS OF UPPER AIRWAY NOISE, BUT NO DYSPNEA. KEEPS EYES CLOSED AT ALL TIMES. ) HEENT: Other (EDENTULOUS, ORAL MUCOSA DRY) Respiratory: Decreased Breath Sounds (IN BASES), Other (LOTS OF UPPER AIRWAY NOISE) Cardiovascular: Irregularly Irregular Gastrointestinal: Non Tender, Soft Extremity: Pedal Edema (1+ BILATERALLY), Other (DIALYSIS GRAFT/A-V FISTULA TO LEFT ARM. ) Neurologic/Psychiatric: Other (AWAKE AND PT IS ABLE TO ANSWER SOME SIMPLE QUESTIONS. PT KNOWS HE IS IN A HOSPITAL, AND STATES HE IS HERE "TO GET MEDICAL TREATMENT" BUT CANNOT ELABORATE FURTHER TO WHY HE IS HERE; SPEECH IS RELATIVELY CLEAR. PT DOES APPEAR TO MOVE ALL EXTREMITIES. ) Skin: Warm/Dry, Ecchymosis (OLD BRUISING TO BOTH ARMS OF VARIOUS AGES. ), Other (SCABBED WOUNDS TO RIGHT KNEE AND LEFT BELL, DRESSING OVER WOUND TO LEFT KNEE. BOTH FEET ARE HEAVILY BANDAGED--DRESSINGS CLEAN AND DRY,. ) Progress/Results/Core Measures Suspected Sepsis SIRS Temperature: Pulse: 87 Respiratory Rate: 16 Laboratory Tests 11/21/21 15:25: White Blood Count 12.6H Blood Pressure 141 /78 Mean: 99 Laboratory Tests 11/21/21 15:25: Creatinine 3.66H, INR Comment 1.0, Platelet Count 331, Total Bilirubin 0.4 Results/Orders Lab Results Laboratory Tests Test 11/21/21 15:25 Range/Units White Blood Count 12.6 H 4.3-11.0 10^3/uL Red Blood Count 4.26 L 4.30-5.52 10^6/uL Hemoglobin 13.9 13.3-17.7 g/dL Hematocrit 44 40-54 % Mean Corpuscular Volume 102 H 80-99 fL Mean Corpuscular Hemoglobin 33 25-34 pg Mean Corpuscular Hemoglobin Concent 32 32-36 g/dL Red Cell Distribution Width 15.2 H 10.0-14.5 % Platelet Count 331 130-400 10^3/uL Mean Platelet Volume 10.6 9.0-12.2 fL Immature Granulocyte % (Auto) 0 % Neutrophils (%) (Auto) 84 H 42-75 % Lymphocytes (%) (Auto) 9 L 12-44 % Monocytes (%) (Auto) 6 0-12 % Eosinophils (%) (Auto) 0 0-10 % Basophils (%) (Auto) 0 0-10 % Neutrophils # (Auto) 10.5 H 1.8-7.8 10^3/uL Lymphocytes # (Auto) 1.2 1.0-4.0 10^3/uL Monocytes # (Auto) 0.8 0.0-1.0 10^3/uL Eosinophils # (Auto) 0.0 0.0-0.3 10^3/uL Basophils # (Auto) 0.0 0.0-0.1 10^3/uL Immature Granulocyte # (Auto) 0.1 0.0-0.1 10^3/uL Prothrombin Time 13.8 12.2-14.7 SEC INR Comment 1.0 0.8-1.4 Activated Partial Thromboplast Time 41 H 24-35 SEC Sodium Level 140 135-145 MMOL/L Potassium Level 6.2 H 3.6-5.0 MMOL/L Chloride Level 100 98-107 MMOL/L Carbon Dioxide Level 25 21-32 MMOL/L Anion Gap 15 H 5-14 MMOL/L Blood Urea Nitrogen 29 H 7-18 MG/DL Creatinine 3.66 H 0.60-1.30 MG/DL Estimat Glomerular Filtration Rate 15 BUN/Creatinine Ratio 8 Glucose Level 91 70-105 MG/DL Calcium Level 9.7 8.5-10.1 MG/DL Corrected Calcium 10.5 H 8.5-10.1 MG/DL Total Bilirubin 0.4 0.1-1.0 MG/DL Aspartate Amino Transf (AST/SGOT) 64 H 5-34 U/L Alanine Aminotransferase (ALT/SGPT) 26 0-55 U/L Alkaline Phosphatase 183 H 40-136 U/L Total Protein 7.5 6.4-8.2 GM/DL Albumin 3.0 L 3.2-4.5 GM/DL My Orders Orders - CASEY RUIZ DO Chest 1 View, Ap/Pa Only (11/21/21 18:08) Rt Request For Service (11/21/21 18:08) D50w (Emergency) Syringe (Dextrose 50% 5 (11/21/21 19:15) Insulin (Regular) Human (Novolin R (Per (11/21/21 19:15) Calcium Gluconate 10% Inj (Calcium Glu (11/21/21 19:15) Calc Gluc 1 Gm/100 Ml Ivpb (Calcium Gluc (11/21/21 19:30) Calc Gluc 1 Gm/100 Ml Ivpb (Calcium Gluc (11/21/21 19:19) Medications Given in ED Current Medications Medications Dose Ordered Sig/Rahul Route Start Time Stop Time Status Last Admin Dose Admin Calcium Gluconate 4.65 meq ONCE ONCE IV 11/21/21 19:15 11/21/21 19:21 DC 11/21/21 19:41 4.65 MEQ Calcium Gluconate/ Sodium Chloride 100 ml @ 120 mls/hr ONCE ONCE IV 11/21/21 19:30 11/21/21 20:19 DC 11/21/21 19:42 120 MLS/HR Dextrose 50 ml ONCE ONCE IV 11/21/21 19:15 11/21/21 19:16 DC 11/21/21 19:24 50 ML Insulin Human Regular 10 unit ONCE ONCE IV 11/21/21 19:15 11/21/21 19:16 DC 11/21/21 19:41 10 UNIT Vital Signs/I&O 11/21/21 11/21/21 15:12 15:23 Temp 36.3 Pulse 87 Resp 16 B/P (MAP) 141/78 (99) O2 Delivery Nasal Cannula O2 Flow Rate 3.00 Capillary Refill : Blood Pressure Mean: 99 Progress Note : Progress Note COVID TESTING DONE O2 SATS 96-100% ON 3L/NC RT FOR SUCTIONING PT, WITH TRANSIENT IMPROVEMENT IN UPPER AIRWAY NOISE PT ADAMANTLY REFUSES CT SCAN. REPEATEDLY STATES THAT HE WANTS TO BE TRANSFERRED. NO DETERIORATION IN PT'S CONDITION DURING ER STAY PT HAD NO STOOLS DURING ENTIRE ER STAY HE VOICED NO COMPLAINTS OF ANY KIND DURING ER STAY, AND RESTED QUIETLY, EASILY AWAKENS. Diagnostic Imaging Comments CXR--PER RADIOLOGIST REPORT FINDINGS: The lung volumes are normal. No focal consolidation is seen. No large pleural effusion or pneumothorax is seen. There is cardiomegaly with central pulmonary vascular congestion. No acute osseous abnormality is seen. IMPRESSION: Cardiomegaly with central pulmonary vascular congestion. Reviewed: Reviewed by Me Departure Communication (Admissions) Family Conversation 1814--ATTEMPTED TO CONTACT DAUGHTER, ZOIE, MESSAGE LEFT. SHE NEVER RETURNED CALL OR CALLED TO CHECK ON PT AT ANY TIME DURING ER STAY, NOR DID ANY OTHER FAMILY MEMBERS. ATTEMPTED TO CONTACT DAVID SMILEY BRANCH SPECIALIST OR ADULT PROVIDER AT [facility] WITHOUT SUCCESS. 1836--CALLED [facility]. THEY WILL PAGE HOSPITALIST AND CALL BACK 1906--CALLED [facility], THEY ARE STILL WAITING FOR HOSPITALIST TO RETURN THEIR PAGE 1912--SPOKE WITH DR. KHADRA GRAY, ACCEPTS PT FOR ADMIT/TRANSFER. MARKED DELAY BOTH OBTAINING A BED ASSIGNMENT BY [facility]. THEY WERE CONTACTED MULTIPLE TIMES BY MYSELF AND RN FOR BED ASSIGNMENT. 2309--[facility] CALLED WITH BED ASSIGNMENT. [facility] WAS CONTACTED FOR TRANSPORT 2331--EMS HERE FOR TRANSPORT. Impression Primary Impression: Bloody stools Additional Impressions: ANTICOAGULATION FOR ATRIAL FIBRILLATION AND PAD ESRD on dialysis RECENT TOE AMPUTATIONS FOR GANGRENE Dementia Colon cancer Disposition: [facility] Condition: Stable Transfer Transfer Reason: Exceeds level of care Transfer Facility: [facility] Method of Transfer: EMS Departure-Patient Inst. Referrals: REI HIGH MD (PCP/Family) Primary Care Physician CASEY RUIZ DO November 22, 2021 05:10
== END ==
LOC: EDUNIT# 15:08 → ER 15:10
DX: I12.0 Hypertensive chronic kidney disease with stage 5 chronic kidney disease or end stage renal disease (principal); N18.6 End stage renal disease; D63.1 Anemia in chronic kidney disease; F03.91 Unspecified dementia, unspecified severity, with behavioral disturbance; I48.91 Unspecified atrial fibrillation; I73.9 Peripheral vascular disease, unspecified; C18.9 Malignant neoplasm of colon, unspecified; H54.7 Unspecified visual loss; Z87.891 Personal history of nicotine dependence; Z86.718 Personal history of other venous thrombosis and embolism; Z87.2 Personal history of diseases of the skin and subcutaneous tissue; Z86.73 Personal history of transient ischemic attack (TIA), and cerebral infarction without residual deficits; Z89.421 Acquired absence of other right toe(s); Z89.422 Acquired absence of other left toe(s); Z79.01 Long term (current) use of anticoagulants; Z99.2 Dependence on renal dialysis; Z99.81 Dependence on supplemental oxygen
CPT/HCPCS: 36415; 71045; 80053; 85025; 85610; 85730

== ENCOUNTER 2021-11-29 10:47 | Emergency (ER) | payer MEDICARE ==
[~2021-11-29] VITALS: Ht 183 cm; Wt 66.0 kg
[~2021-11-29 10:47] MED LIST changes: -CALC GLUC 1 GM/100 ML IVPB 100 ML IV ONE; -CALCIUM GLUC. 10% 4.65 MEQ/10 ML VIAL IV ONE; -DEXTROSE 50% 50 ML (IMS) SYR IV ONE; -inSUlin (REGULAR) HUMAN 1 UNIT/0.01 ML (CHARGE PER UNIT) IV ONE
--- NOTE | 2021-11-29 11:10 | ED Respiratory ---
General Chief Complaint: Respiratory Problems Stated Complaint: RESP DISTRESS Source: patient, EMS, alf records Exam Limitations: clinical condition (dementia) History of Present Illness Date Seen by Provider: November 29, 2021 Time Seen by Provider: 10:50 Initial Comments 86-year-old male with past medical history of dementia, ESRD on HD, hypertension, hyperlipidemia, CAD, prior blood clot on Eliquis coming in via EMS from his alf due to respiratory distress. They noted around 9:30 AM the patient was breathing hard, his oxygen was in the 60s. They placed him on 10 L and it improved to the 70s roughly. They said he was initially unresponsive and became more responsive. No cough of been noted, fever, he had not been complaining of increasing pain, vomiting, diarrhea. He was supposed to get dialysis today but did not yet. He is DNR/DNI. Allergies and Home Medications Allergies Coded Allergies: clonazepam (Verified Allergy, Unknown, 10/22/21) clopidogrel (Verified Allergy, Unknown, 10/22/21) heparin (Verified Allergy, Unknown, 10/22/21) Uncoded Allergies: CHLORINE (Allergy, Unknown, 10/24/21) Patient Home Medication List Home Medication List Reviewed: Yes Acetaminophen (Acetaminophen Extra Strength) 500 Mg Tablet, 500 MG PO Q8H PRN for PRN, (Reported) Entered as Reported by: NILS MONTE on 10/24/21 1508 Amoxicillin/Potassium Clav (Augmentin 500-125 Tablet) 500 Mg-125 Mg Tablet, 1 EACH PO DAILY Prescribed by: ESTUARDO LESTER on 10/22/21 1147 Apixaban (Eliquis) 2.5 Mg Tablet, 2.5 MG PO BID, (Reported) Entered as Reported by: NILS MONTE on 10/24/21 1452 Atorvastatin Calcium (Lipitor) 40 Mg Tablet, 40 MG PO HS, (Reported) Entered as Reported by: NILS MONTE on 10/24/21 1508 Calcium Acetate (Calcium Acetate) 667 Mg Capsule, 667 MG PO TID, (Reported) Entered as Reported by: NILS MONTE on 10/24/21 1508 Calcium Carbonate (Tums X-Str) 300 Mg Calcium (750 Mg) Tab.chew, 300 MG PO UD, (Reported) Entered as Reported by: NILS MONTE on 10/24/21 1508 Carbamazepine (Carbamazepine ER) 100 Mg Tab.er.12h, 300 MG PO BID, (Reported) Entered as Reported by: NILS MONTE on 10/24/21 1508 Diphenhydramine HCl (Diphenhydramine HCl) 25 Mg Tablet, 25 MG PO Q6H PRN, (Reported) Entered as Reported by: NILS MONTE on 10/24/21 1508 Diphenhydramine HCl (Diphenhydramine HCl) 25 Mg Tablet, 50 MG PO Q MWF FOR DIALYSIS, (Reported) Entered as Reported by: NILS MONTE on 10/24/21 1508 Doxycycline Hyclate (Doxycycline Hyclate) 100 Mg Tablet, 100 MG PO BID Prescribed by: JANE PACKER on 11/29/21 1305 Finasteride (Finasteride) 5 Mg Tablet, 5 MG PO DAILY, (Reported) Entered as Reported by: NILS MONTE on 10/24/21 1508 Gabapentin (Gabapentin) 100 Mg Capsule, 100 MG PO TID, (Reported) Entered as Reported by: NILS MONTE on 10/24/21 1508 Hydrocodone/Acetaminophen (Hydrocodone-Acetamin 10-325 mg) 10 Mg-325 Mg Tablet, 1 EACH PO Q6H PRN for PRN, (Reported) Entered as Reported by: NILS MONTE on 10/24/21 1508 Levothyroxine Sodium (Synthroid) 25 Mcg Tablet, 25 MCG PO DAILY, (Reported) Entered as Reported by: NILS MONTE on 10/24/21 1508 Linaclotide (Linzess) 145 Mcg Capsule, 145 MCG PO DAILY, (Reported) Entered as Reported by: NILS MONTE on 10/24/21 1508 Magnesium Oxide (Magnesium Oxide) 400 Mg Tablet, 400 MG PO DAILY, (Reported) Entered as Reported by: NILS MONTE on 10/24/21 1508 Midodrine HCl (Midodrine HCl) 5 Mg Tablet, 5 MG PO TID, (Reported) Entered as Reported by: NILS MONTE on 10/24/21 1508 Nitroglycerin (Nitroglycerin) 0.4 Mg Tab.subl, 0.4 MG SL UD PRN for CHEST PAIN, (Reported) Entered as Reported by: NILS MONTE on 10/24/21 1508 Ondansetron (Ondansetron Odt) 4 Mg Tab.rapdis, 4 MG PO PRN, (Reported) Entered as Reported by: NILS MONTE on 10/24/211507 Pantoprazole Sodium (Protonix) 40 Mg Granpkt.dr, 40 MG PO DAILY, (Reported) Entered as Reported by: NILS MONTE on 10/24/211507 Ropinirole HCl (Ropinirole HCl) 0.5 Mg Tablet, 0.5 MG PO UD, (Reported) Entered as Reported by: NILS MONTE on 10/24/211507 Vitamin B Complex & Vit C No.3 (B Complex with Vitamin C) 15-10-300 Capsule, 1 EACH PO HS, (Reported) Entered as Reported by: NILS MONTE on 10/24/211507 [Camphor-Menthol ] Unknown Strength , Unknown Dose TOP Q6H PRN, (Reported) Entered as Reported by: NILS MONTE on 10/24/211507 [Leg Cramps Tab ] Unknown Strength , Unknown Dose UD, (Reported) Entered as Reported by: NILS MONTE on 10/24/211507 Review of Systems Review of Systems Constitutional: No fever EENTM: No nose congestion Respiratory: short of breath Cardiovascular: No chest pain Gastrointestinal: No abdominal pain Genitourinary: no symptoms reported Musculoskeletal: no symptoms reported Skin: no symptoms reported Psychiatric/Neurological: Other (confusion) Hematologic/Lymphatic: No Symptoms Reported Immunological/Allergic: no symptoms reported All Other Systems Reviewed Negative Unless Noted: Yes Past Mswcggb-Kavlkg-Vlllqy Hx Patient Social History Tobacco Use?: No Immunizations Up To Date First/Initial COVID19 Vaccinat: 2020 Second COVID19 Vaccination Andrew: 2020 Third COVID19 Vaccination Date: 2020 Seasonal Allergies Seasonal Allergies: No Past Medical History Surgeries: Yes (SEE COMMENT SECTION) Abdominal, Amputation, Bowel Surgery, Dialysis, Orthopedic, Vascular Surgery Respiratory: No Cardiac: Yes (PERIPHERAL ARTERY DISEASE; ARTERIAL OCCLUSION/EMBOLISM OF LEGS) Atrial Fibrillation, Coronary Artery Disease, Deep Vein Thrombosis, High Cholesterol, Hypertension, Peripheral Vascular, Syncope Neurological: Yes (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 ) Arthritis, Fractures Endocrine: No HEENT: Yes (BLIND IN RT EYE, PARTIAL BLINDNESS LT EYE) Cataract, Eye Injury, Glaucoma Loss of Vision: Bilateral Hearing Impairment: Hard of Hearing Cancer: Yes Colon Did You Recieve Any Treatments: Yes What Type of Treatment Did You: Surgical Intervention Psychosocial: Yes (DEMENTIA WITH BEHAVIOR DISTURBANCE) Anxiety Integumentary: No Blood Disorders: Yes (ANEMIA) Adverse Reaction/Blood Tranf: No Physical Exam Vital Signs - First Documented 11/29/21 10:51 Temp 36.0 Pulse 85 Resp 13 B/P (MAP) 124/82 (96) Pulse Ox 100 O2 Delivery Non Rebreather O2 Flow Rate 15.00 Capillary Refill : Height: '" Weight: lbs. oz. kg; 29.00 BMI Method: General Appearance: WD/WN, no apparent distress Eyes: Bilateral Eye Normal Inspection HEENT: PERRL/EOMI, normal ENT inspection, pharynx normal Neck: non-tender, full range of motion, supple, normal inspection Respiratory: chest non-tender, accessory muscle use, crackles, rhonchi Cardiovascular: no edema, no murmur, irregularly irregular Gastrointestinal: normal bowel sounds, non tender, soft; No distended, No guarding Extremities: normal range of motion, non-tender, normal inspection, no pedal edema, no calf tenderness, normal capillary refill, other (Normal distal pulses, fistula in his left arm with good thrill, surgical wound to his right foot which looks like a toe amputation is clean, dry, intact) Neurologic/Psychiatric: no motor/sensory deficits, alert, disoriented x 3 Skin: normal color, warm/dry Lymphatic: no adenopathy Progress/Results/Core Measures Suspected Sepsis SIRS Temperature: Pulse: Respiratory Rate: Laboratory Tests 11/29/21 11:37: White Blood Count 10.6 Blood Pressure / Mean: Laboratory Tests 11/29/21 11:37: Creatinine 4.42H, INR Comment 1.0, Platelet Count 322, Total Bilirubin 0.4 Results/Orders Lab Results Laboratory Tests Test 11/29/21 11:19 11/29/21 11:37 Range/Units Influenza Type A (RT-PCR) Not Detected Not Detecte Influenza Type B (RT-PCR) Not Detected Not Detecte SARS-CoV-2 RNA (RT-PCR) Not Detected Not Detecte White Blood Count 10.6 4.3-11.0 10^3/uL Red Blood Count 3.77 L 4.30-5.52 10^6/uL Hemoglobin 12.2 L 13.3-17.7 g/dL Hematocrit 39 L 40-54 % Mean Corpuscular Volume 102 H 80-99 fL Mean Corpuscular Hemoglobin 32 25-34 pg Mean Corpuscular Hemoglobin Concent 32 32-36 g/dL Red Cell Distribution Width 14.3 10.0-14.5 % Platelet Count 322 130-400 10^3/uL Mean Platelet Volume 10.2 9.0-12.2 fL Immature Granulocyte % (Auto) 1 % Neutrophils (%) (Auto) 86 H 42-75 % Lymphocytes (%) (Auto) 7 L 12-44 % Monocytes (%) (Auto) 6 0-12 % Eosinophils (%) (Auto) 1 0-10 % Basophils (%) (Auto) 1 0-10 % Neutrophils # (Auto) 9.1 H 1.8-7.8 10^3/uL Lymphocytes # (Auto) 0.7 L 1.0-4.0 10^3/uL Monocytes # (Auto) 0.6 0.0-1.0 10^3/uL Eosinophils # (Auto) 0.1 0.0-0.3 10^3/uL Basophils # (Auto) 0.1 0.0-0.1 10^3/uL Immature Granulocyte # (Auto) 0.1 0.0-0.1 10^3/uL Neutrophils % (Manual) 89 % Lymphocytes % (Manual) 4 % Monocytes % (Manual) 7 % Eosinophils % (Manual) 0 % Basophils % (Manual) 0 % Band Neutrophils 0 % Blood Morphology Comment NORMAL Prothrombin Time 13.7 12.2-14.7 SEC INR Comment 1.0 0.8-1.4 Activated Partial Thromboplast Time 47 H 24-35 SEC Sodium Level 141 135-145 MMOL/L Potassium Level 3.5 L 3.6-5.0 MMOL/L Chloride Level 103 98-107 MMOL/L Carbon Dioxide Level 25 21-32 MMOL/L Anion Gap 13 5-14 MMOL/L Blood Urea Nitrogen 24 H 7-18 MG/DL Creatinine 4.42 H 0.60-1.30 MG/DL Estimat Glomerular Filtration Rate 12 BUN/Creatinine Ratio 5 Glucose Level 134 H 70-105 MG/DL Calcium Level 9.2 8.5-10.1 MG/DL Corrected Calcium 10.4 H 8.5-10.1 MG/DL Total Bilirubin 0.4 0.1-1.0 MG/DL Aspartate Amino Transf (AST/SGOT) 33 5-34 U/L Alanine Aminotransferase (ALT/SGPT) 25 0-55 U/L Alkaline Phosphatase 177 H 40-136 U/L Troponin I 0.193 H <0.028 NG/ML B-Type Natriuretic Peptide 952.5 H <100.0 PG/ML Total Protein 6.4 6.4-8.2 GM/DL Albumin 2.5 L 3.2-4.5 GM/DL My Orders Orders - JANE PACKER MD Cbc With Automated Diff (11/29/21 11:05) Chest 1 View, Ap/Pa Only (11/29/21 11:05) Ekg Tracing (11/29/21 11:05) Comprehensive Metabolic Panel (11/29/21 11:05) Protime With Inr (11/29/21 11:05) Partial Thromboplastin Time (11/29/21 11:05) O2 (11/29/21 11:05) Monitor-Rhythm Ecg Trace Only (11/29/21 11:05) Ed Iv/Invasive Line Start (11/29/21 11:05) Bnp Moffat (11/29/21 11:05) Troponin I Singh (11/29/21 11:05) Covid 19 Inhouse Test (11/29/21 11:05) Influenza A And B By Pcr (11/29/21 11:05) Manual Differential (11/29/21 11:37) Doxycycline Hyclate Tablet (Vibramycin T (11/29/21 13:03) Vital Signs/I&O 11/29/21 11/29/21 11/29/21 11/29/21 10:51 10:51 11:02 11:11 Temp 36.0 Pulse 85 Resp 13 B/P (MAP) 124/82 (96) Pulse Ox 100 100 100 100 O2 Delivery Non Rebreather Non Rebreather Simple Mask Simple Mask O2 Flow Rate 15.00 15.00 8.00 6.00 Capillary Refill : Progress Note : Progress Note 86-year-old male with above history coming in hypoxic and confused. ABCs are intact and vitals were stable on presentation. He started off on a nonrebreather and we were able to dial him down to 3 L. His daughter showed up and said that 3 L is his baseline. It sounds like he might not have been wearing this at the facility earlier today which would be the reason why he was hypoxic and confused. After his oxygen came up here, he is back to his mental baseline with dementia. He has been on Eliquis and I think is unlikely he has a new clot such as a PE. Chest x-ray with possible pneumonia so we will start him on doxycycline. He is due for dialysis today. His troponin was elevated at 0.1, in the absence of chest pain and no acute EKG changes, this is likely related to his hypoxia as well as his end-stage renal disease with a being ch ronically elevated. I do believe the patient does need dialysis today. I contacted his dialysis center and they state with the way he sounds like he appears, they would not do dialysis for him. I discussed the case with the daughter and discussed what le stephon of care the patient would want, and how aggressive he would want to be treated given his significant comorbidities. She states she wants to do everything possible that is reasonable except he would still be DNR. I then contacted [facility], the patient will be transferred to [place] Update 14:15, [facility] is still waiting on a bed assignment and will contact us as soon as he is placed ECG Initial ECG Impression Date: November 29, 2021 Initial ECG Impression Time: 11:17 Initial ECG Rate: 85 Initial ECG Rhythm: A Fib/Flutter Comment Wide QRS, no significant ST changes or T wave abnormalities Diagnostic Imaging Diagonstic Imaging: Xray Plain Films/CT/US/NM/MRI: chest Comments [facility]. [place], [place] NAME: [facility] REC#: [id number] PT STATUS: REG ER : 1935 PHYSICIAN: JANE PACKER MD ADMIT DATE: 11/29/21/ER Draft Date of Exam:11/29/21 CHEST 1 VIEW, AP/PA ONLY INDICATION: Chest pain. COMPARISON: 11/21/2021. TECHNIQUE: Single radiograph of the chest dated 11/29/2021. FINDINGS: Vascular stent is again noted overlying the left axillary/shoulder region. The cardiac silhouette is at upper limits of normal in size. Minimal central pulmonary vascular congestion, though this appears improved since the prior examination. Persistent low lung volumes. Improved though persistent minimal bilateral interstitial opacities. Trace left pleural effusion. No large volume right pleural effusion. No pneumothorax. Chronic right-sided rib fractures. IMPRESSION: Low lung volumes with slightly improving central pulmonary vascular congestion and interstitial edema. Small left basilar pleural-parenchymal opacity, felt to relate to a combination of pleural fluid with mild adjacent atelectasis and/or infiltrate. Dictated on workstation # [id number] Dict: 11/29/21 1209 Trans: 11/29/21 1217 [id number] Interpreted by: KASEY CHOWDHURY MD Electronically signed by: Departure Impression Primary Impression: ESRD on dialysis Additional Impressions: Respiratory failure Qualified Codes: J96.11 - Chronic respiratory failure with hypoxia Pneumonia Qualified Codes: J18.9 - Pneumonia, unspecified organism NSTEMI (non-ST elevated myocardial infarction) Disposition: XFER SHT-TRM HOSP Condition: Stable Admissions Decision to Admit/Date: November 29, 2021 Time/Decision to Admit Time: 13:00 Transfer Transfer Reason: Exceeds level of care Time Spoke to Accepting Phy: 13:20 Transfer [facility] Samanie[facility] Transfer Facility: [facility] Method of Transfer: EMS Departure-Patient Inst. Referrals: REI HIGH MD (PCP/Family) Primary Care Physician Scripts Doxycycline Hyclate (Doxycycline Hyclate) 100 Mg Tablet 100 MG PO BID for 7 Days, #14 TAB 0 Refills Prov: JANE PACKER MD 11/29/21 JANE PACKER MD November 29, 2021 11:10
[2021-11-29 11:51] LABS: BASOPHILS # (AUTO) 0.1 10^3/uL (0.0-0.1); BASOPHILS % (AUTO) 1 % (0-10); EOSINOPHILS # (AUTO) 0.1 10^3/uL (0.0-0.3); EOSINOPHILS % (AUTO) 1 % (0-10); HEMATOCRIT 39 % (40-54); HEMOGLOBIN 12.2 g/dL (13.3-17.7); LYMPHOCYTES # (AUTO) 0.7 10^3/uL (1.0-4.0); LYMPHOCYTES % (AUTO) 7 % (12-44); MEAN CORPUSCULAR HEMOGLOBIN 32 pg (25-34); MEAN CORPUSCULAR HGB CONC 32 g/dL (32-36); MEAN CORPUSCULAR VOLUME 102 fL (80-99); MEAN PLATELET VOLUME 10.2 fL (9.0-12.2); MONOCYTES # (AUTO) 0.6 10^3/uL (0.0-1.0); MONOCYTES % (AUTO) 6 % (0-12); NEUTROPHILS # (AUTO) 9.1 10^3/uL (1.8-7.8); NEUTROPHILS % (AUTO) 86 % (42-75); PLATELET COUNT 322 10^3/uL (130-400); WHITE BLOOD COUNT 10.6 10^3/uL (4.3-11.0)
[2021-11-29 11:59] LABS: ALBUMIN 2.5 GM/DL (3.2-4.5); POTASSIUM 3.5 MMOL/L (3.6-5.0)
[2021-11-29 12:01] LABS: CALCIUM 9.2 MG/DL (8.5-10.1)
[2021-11-29 12:02] LABS: PROTHROMBIN TIME PATIENT 13.7 SEC (12.2-14.7); TOTAL PROTEIN 6.4 GM/DL (6.4-8.2)
[2021-11-29 12:04] LABS: BILIRUBIN,TOTAL 0.4 MG/DL (0.1-1.0)
[2021-11-29 12:05] LABS: CREATININE SERUM 4.42 MG/DL (0.60-1.30)
--- NOTE | 2021-11-29 12:17 | Diagnostic Imaging Report ---
INDICATION: Chest pain. COMPARISON: 11/21/2021. TECHNIQUE: Single radiograph of the chest dated 11/29/2021. FINDINGS: Vascular stent is again noted overlying the left axillary/shoulder region. The cardiac silhouette is at upper limits of normal in size. Minimal central pulmonary vascular congestion, though this appears improved since the prior examination. Persistent low lung volumes. Improved though persistent minimal bilateral interstitial opacities. Trace left pleural effusion. No large volume right pleural effusion. No pneumothorax. Chronic right-sided rib fractures. IMPRESSION: Low lung volumes with slightly improving central pulmonary vascular congestion and interstitial edema. Small left basilar pleural-parenchymal opacity, felt to relate to a combination of pleural fluid with mild adjacent atelectasis and/or infiltrate. Dictated by: Dictated on workstation # [id number]
[2021-11-29 12:19] LABS: BAND NEUTROPHILS 0 %; BASOPHILS % (MANUAL) 0 %; EOSINOPHILS % (MANUAL) 0 %; LYMPHOCYTES % (MANUAL) 4 %; MONOCYTES % (MANUAL) 7 %; NEUTROPHILS % (MANUAL) 89 %
[2021-11-29 12:20] LABS: RBC MORPH NORMAL
[2021-11-29] MEDS ORDERED: DOXYCYCLINE 100 MG (VIBRAMYCIN) TABLET PO STA (13:03)
[2021-11-29] MEDS ORDERED: DOXY100T2 PO (13:05)
[2021-11-29 19:15] VITALS: BP 124/63
== END 2021-11-29 19:15 | disposition short-term general hospital (02) ==
LOC: EDUNIT# 10:47 → ER 10:48
DX: J18.9 Pneumonia, unspecified organism (principal); J96.11 Chronic respiratory failure with hypoxia; I12.0 Hypertensive chronic kidney disease with stage 5 chronic kidney disease or end stage renal disease; N18.6 End stage renal disease; D63.1 Anemia in chronic kidney disease; I21.4 Non-ST elevation (NSTEMI) myocardial infarction; I25.10 Atherosclerotic heart disease of native coronary artery without angina pectoris; F03.91 Unspecified dementia, unspecified severity, with behavioral disturbance; H54.7 Unspecified visual loss; Z85.038 Personal history of other malignant neoplasm of large intestine; Z86.73 Personal history of transient ischemic attack (TIA), and cerebral infarction without residual deficits; Z86.718 Personal history of other venous thrombosis and embolism; Z99.2 Dependence on renal dialysis; Z79.01 Long term (current) use of anticoagulants; Z20.822 Contact with and (suspected) exposure to COVID-19
CPT/HCPCS: 36415; 71045; 80053; 83880; 84484; 85007; 85025; 85027; 85610; 85730; 87636; 93041